=== PATIENT | female | born 1970 | race Caucasian/White ===

== ENCOUNTER 2022-09-07 01:07 | Emergency (ER) | payer BC, OTHER ==
[2022-09-07] MEDS ORDERED: Cefdinir 300 MG Cap PO ONE (01:42)
[2022-09-07] MEDS ORDERED: Phenazopyridine 200 MG Tab PO ONE (01:43)
== END 2022-09-07 01:56 | disposition home or self-care (01) ==
LOC: MW.ED 01:07
DX: N39.0 Urinary tract infection, site not specified (principal); E03.9 Hypothyroidism, unspecified; Z91.011 Allergy to milk products; Z79.899 Other long term (current) drug therapy
CPT/HCPCS: 81001; 99283; A9270